=== PATIENT | male | born 1930 | race Caucasian/White ===

== ENCOUNTER 2017-06-14 18:34 | Emergency (ER) | payer MEDICARE ==
[~2017-06-14] VITALS: Ht 188 cm; Wt 85.5 kg
[~2017-06-14 18:34] MED LIST: AMIO200 PO; BILB40CA PO; D400400C PO; FLON0.053 EACH NARE; FOSI10TA4 PO; IBUP-1116 PO; LORA-474 PO; LOVA10TA PO; LUTE1CAP PO; METO25 PO; MINO50TA PO; RANI150 PO; TEST200I12 IM
[2017-06-14 18:41] VITALS: BP 160/72; PULSE 74; RESP 18; TEMP 97.7; O2SAT 97
[2017-06-14 20:04] LABS: BLOOD, URINE LARGE (NEG); GLUCOSE,URINE 250 mg/dL (NEG); KETONE, URINE NEG (NEG); NITRITE,URINE NEG (NEG); PH, URINE 5.5 (5.0-8.5)
--- NOTE | 2017-06-14 20:14 | PD ---
HPI Chief Complaint: Flank/Kidney Pain Time Seen by Provider: 20:05 Travel History International Travel<30 days: No Contact w/Intl Traveler<30days: No Traveled to known affect area: No History of Present Illness HPI 87-year-old male presents to the emergency department by private transportation for complaint of left flank pain radiating to the left lower quadrant consistent with previous renal colic. Patient has history of known left-sided kidney stones and is followed by urologist Dr. Levine. Patient saw his urologist yesterday and had been told that he has a left renal cyst and several small stones in the inferior pole of the left kidney but otherwise right kidney looked fine and did not appear to have any kind of hydroureter or hydronephrosis. Patient was quite pleased with this report until today a few hours prior to arrival to the emergency department developed sudden onset left flank pain that reminded him of renal colic 8/10 in intensity associated with nausea and sweats and 1 episode of vomiting nonbilious [id number] nonbloody emesis. Patient states that he took a one-time dose of sublingual Zofran with resolved his nausea and he's had no further vomiting. Patient did not take any other medication. Patient now states discomfort has decreased to 1 /10 in intensity. Patient presents stating that he is fairly confident this was a kidney stone that he is interested in knowing if he passed a stone if there is still a ureteral stone or if there is another concern. Patient denies any epigastric or periumbilical pain and no midline back pain. Patient denies any ripping or tearing type pain. Patient denies any chest pain palpitations shortness of breath or referred neck jaw shoulder or arm pain. Patient also has not had any anorexia or ongoing nausea or vomiting. 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 Patient is followed by his primary care provider was briefly followed by Dr. Win and now is followed by Dr. Roman is his oncologist was also previously followed by Dr. Herman. Patient has had small bowel instruction in the past. Patient states this is not reminded him of previous small bowel obstruction. Patient has not noticed any gross hematuria but does note that yesterday at the urologist officer was some microscopic hematuria. Patient denies any fever or chills. Patient is concerned that all have recurrent pain and requests a refill of his pain medication and his Zofran as he thinks he is almost out of these medications. Patient is unable to identify exacerbating or alleviating factors. PFSH Past Medical History Narrative Medical Anxiety atrial fibrillation metastatic colon cancer COPD CHF gouty arthritis depression Dupuytren's contracture dyslipidemia hypertension macular degeneration kidney stones renal stent partial colectomy right lower lobectomy rhinoplasty skin cancer excision tonsillectomy last colonoscopy 2009 no tobacco use rare alcohol use nursing notes reviewed Arthritis: Yes Asthma: No Atrial Fibrillation: Yes (HX OF) Autoimmune Disease: No Blood Disorders: No Anxiety: Yes Depression: Yes Heart Rhythm Problems: Yes (ATRIAL FIB,CARDIOVERSION ) Cancer: Yes (COLON CA 1989, LUNG [id number]) Cardiovascular Problems: Yes (1996 AFIB) High Cholesterol: Yes Chemotherapy: No Congestive Heart Failure: Yes COPD: Yes (MILD) Diabetes: No Diminished Hearing: No (BILATERAL,HEARING AIDES AT HOME) Endocrine: No Gastrointestinal Disorders: Yes (COLON CA) GERD: No Glaucoma: Yes Genitourinary: No Hepatitis: No Hiatal Hernia: No Hypertension: Yes Immune Disorder: No Implanted Vascular Access Dvce: Yes Musculoskeletal: Yes Neurologic: No Psychiatric: Yes Reproductive: No Respiratory: Yes (COPD LUNG OPERATION) Myocardial Infarction: No Radiation Therapy: No Thyroid Disease: No Ulcer: No Past Surgical History Abdominal Surgery: Yes (COLON RESECTION) AICD: No Body Medical Devices: LENS IMPLANTS Eye Surgery: Yes (BILAT CATARACT EXT) Genitourinary Surgery: No Oral Surgery: Yes (TONSILS) Pacemaker: No Thoracic Surgery: Yes (LUNG CANCER RIGHT LOBECTOMY) Tonsillectomy: Yes (1934) Other Surgery: Yes (1989-COLON SUGERY(CANCER) 2002--SURGERY FOR LUNG CANCER) Social History Alcohol Use: No Tobacco Use: No (QUIT 30-40YRS AGO) Substance Use: No Allergies-Medications (Allergen,Severity, Reaction): Coded Allergies: Hydrocodone (Verified Adverse Reaction, Intermediate, CAUSES NAUSEA-DOES NOT WANT TO TAKE, 06/14/17) Reported Meds & Prescriptions Reported Meds & Active Scripts Active Reported Zofran Odt (Ondansetron Odt) 4 Mg Tab 4 Mg SL Q6HR PRN [Chanca] Avastin Inj (Bevacizumab) 100 Mg/4 Ml Inj Potassium Citrate ER 15 Meq Tab Testosterone Cypionate Inj (Testosterone Cypionate) 100 Mg/Ml Inj 0.4 Mg IM WEEKLY Lutein 40 Mg Cap 40 Mg PO DAILY Lutein 20 Mg Cap 20 Mg PO DAILY Bilberry 100 Mg Capsule 20 Mg PO DAILY Minocycline (Minocycline HCl) 50 Mg Tab 50 Mg PO DAILY Amiodarone (Amiodarone HCl) 200 Mg Tab 200 Mg PO DAILY Lovastatin 10 Mg Tab 10 Mg PO DAILY Lorazepam 1 Mg Tab 1 Mg PO Q4H PRN Review of Systems Except as stated in HPI: all other systems reviewed are Neg General / Constitutional: No: Fever, Chills HENT: No: Congestion Cardiovascular: Positive: Diaphoresis, No: Chest Pain or Discomfort Respiratory: No: Shortness of Breath Gastrointestinal: Positive: Nausea, Vomiting (1x), Abdominal Pain (referred LLQ ) Genitourinary: Positive: Flank Pain, No: Urgency, Frequency, Dysuria, Hematuria Musculoskeletal: No: Myalgias, Arthralgias Skin: No Rash Neurologic: No: Weakness Psychiatric: No: Anxiety Hematologic/Lymphatic: No: Lymph Node Enlargement Physical Exam Narrative GENERAL: Well-developed well-nourished male in no acute distress no respiratory distress SKIN: Warm and dry. HEAD: Normocephalic. EYES: No scleral icterus. No injection or drainage. NECK: Supple, trachea midline. No JVD or lymphadenopathy. CARDIOVASCULAR: Regular rate and rhythm without murmurs, gallops, or rubs. RESPIRATORY: Breath sounds equal bilaterally. No accessory muscle use. GASTROINTESTINAL: Abdomen soft, non-tender, nondistended. No guarding or rebound. No palpable pulsatile mass. MUSCULOSKELETAL: No cyanosis, or edema. Radial and dorsalis pedis pulses 2+ to palpation bilaterally. BACK: Nontender without obvious deformity. Mild left flank/CVA tenderness. Data Data Last Documented VS Vital Signs Date Time Temp Pulse Resp B/P Pulse Ox O2 Delivery O2 Flow Rate FiO2 06/14/17 20:40 72 18 138/67 06/14/17 18:41 97.7 97 Orders Urinalysis - C+S If Indicated (06/14/17 19:56) Ct Abd/Pel W/O Iv Contrast (06/14/17 ) Complete Blood Count With Diff (06/14/17 20:14) Basic Metabolic Panel (Bmp) (06/14/17 20:14) Tamsulosin (Flomax) (06/14/17 21:15) Labs Laboratory Tests Test 06/14/17 06/14/17 19:55 20:37 Urine Color YELLOW Urine Turbidity SLIGHT Urine pH 5.5 Urine Specific [place] 1.010 Urine Protein TRACE mg/dL Urine Glucose (UA) 250 mg/dL Urine Ketones NEG mg/dL Urine Occult Blood LARGE Urine Nitrite NEG Urine Bilirubin NEG Urine Leukocyte Esterase NEG Urine RBC 100-200 /hpf Urine WBC 0-2 /hpf Urine Squamous Epithelial 0-5 /hpf Cells Urine Bacteria NONE /hpf Microscopic Urinalysis Comment CULT NOT INDICATED White Blood Count 10.3 TH/MM3 Red Blood Count 5.54 MIL/MM3 Hemoglobin 16.5 GM/DL Hematocrit 50.3 % Mean Corpuscular Volume 90.7 FL Mean Corpuscular Hemoglobin 29.7 PG Mean Corpuscular Hemoglobin 32.8 % Concent Red Cell Distribution Width 14.2 % Platelet Count 220 TH/MM3 Mean Platelet Volume 8.3 FL Neutrophils (%) (Auto) 82.5 % Lymphocytes (%) (Auto) 8.2 % Monocytes (%) (Auto) 6.3 % Eosinophils (%) (Auto) 0.1 % Basophils (%) (Auto) 2.9 % Neutrophils # (Auto) 8.6 TH/MM3 Lymphocytes # (Auto) 0.8 TH/MM3 Monocytes # (Auto) 0.6 TH/MM3 Eosinophils # (Auto) 0.0 TH/MM3 Basophils # (Auto) 0.3 TH/MM3 CBC Comment DIFF FINAL Differential Comment Sodium Level 139 MEQ/L Potassium Level 4.4 MEQ/L Chloride Level 103 MEQ/L Carbon Dioxide Level 29.0 MEQ/L Anion Gap 7 MEQ/L Blood Urea Nitrogen 26 MG/DL Creatinine 1.80 MG/DL Estimat Glomerular Filtration 36 ML/MIN Rate Random Glucose 106 MG/DL Calcium Level 8.8 MG/DL [facility] Medical Decision Making Medical Screen Exam Complete: Yes Emergency Medical Condition: Yes Medical Record Reviewed: Yes Interpretation(s) Last Impressions Abdomen/Pelvis CT 06/14/17 0000 Signed Impressions: Service Date/Time: Wednesday, June 14, 2017 20:20 - CONCLUSION: 1. 9 mm calculus at the left distal ureter, just above the left UVJ with mild left sided ureteral dilatation. Numerous additional nonobstructing bilateral renal calculi. Jarett Galvez MD CBC & BMP Diagram 06/14/17 20:37 Vital Signs Date Time Temp Pulse Resp B/P Pulse Ox O2 Delivery O2 Flow Rate FiO2 06/14/17 20:40 72 18 138/67 06/14/17 18:41 97.7 74 18 160/72 97 06/14/17 18:41 97.7 74 18 160/72 97 Differential Diagnosis Flank pain renal colic/obstructive uropathy, pyelonephritis, abdominal aortic aneurysm, dissection, diverticulitis, musculoskeletal pain Narrative Course Specimen collected for urinalysis CT kidney stone protocol abdomen and pelvis imaging ordered IV access obtained specimens collected and sent for resulting; no medications administered as patient denies nausea after Zofran and current discomfort is 1/10 in intensity. Patient remains asymptomatic in the emergency department; labs resulted along with CT abdomen and pelvis kidney stone protocol that identifies a distal ureter stone just above the UVJ 9 mm. Patient with mild hydroureter and minimal hydronephrosis. Patient's discussed case discussed with on-call urologist Dr. Benitez who recommended patient follow-up with his urologist on Saturday Dr. Levine otherwise we'll need to return to the emergency department or possibly be hospitalized over the weekend should he have any recurrent pain. Patient has chronic renal insufficiency which is unchanged from prior lab values. Physician Communication Physician Communication case discussed with Dr Benitez -- follow up outpatient with Dr Levine Diagnosis Primary Impression: Ureterolithiasis Additional Impressions: Chronic kidney disease Medication refill Referrals: Michael Levine MD 3 days Patient Instructions: General Instructions Additional Instructions: Strain urine Increase fluid hydration Take medications as prescribed as needed Follow-up with your urologist Dr. Levine on Saturday Return to the emergency department over the weekend for any pain fever vomiting or any concerns Med/Other Pt SpecificInfo: Prescription(s) given Scripts Oxycodone-Acetaminophen (Percocet)5-325 mg Tab1-2 Tab PO Q6H PRN (PAIN) #12 TAB Ref 0 Prov:Janessa Ortega MD 06/14/17 Tamsulosin (Flomax)0.4 Mg Cap0.4 Mg PO HS #10 CAP Ref 0 Prov:Janessa Ortega MD 06/14/17 Promethazine (Phenergan)25 Mg [id number] Mg PO Q6H PRN (NAUSEA OR VOMITING) #10 TAB Ref 0 Prov:Janessa Ortega MD 06/14/17 Ondansetron Odt (Zofran Odt)4 Mg Tab4 Mg SL Q6HR PRN (Nausea/Vomiting) #6 TAB Ref 0 Prov:Janessa Ortega MD 06/14/17 Disposition: 01 DISCHARGE HOME Condition: Stable Janessa Ortega MD Jun 14, 2017 20:14
[2017-06-14 20:19] LABS: URINE COLOR YELLOW (YELLW/STRAW)
[2017-06-14 20:20] LABS: RBC, URINE 100-200 /hpf (0-3); SQUAMOUS EPITHELIAL CELL URINE 0-5 /hpf (0-5); WBC, URINE 0-2 /hpf (0-5)
[2017-06-14 20:21] LABS: COMMENT (UR) CULT NOT INDICATED; CULTURE IF INDICATED CULT NOT INDICATED
[2017-06-14 20:40] VITALS: BP 138/67; PULSE 72; RESP 18
[2017-06-14 20:41] LABS: AUTOMATED NEUTROPHIL # 8.6 TH/MM3 (1.8-7.7); BASOPHIL # 0.3 TH/MM3 (0-0.2); BASOPHIL % 2.9 % (0.0-2.0); EOSINOPHIL % 0.1 % (0.0-4.0); HEMATOCRIT 50.3 % (39.0-51.0); HEMO FLAGS DIFF FINAL; LYMPH % 8.2 % (9.0-44.0); LYMPHOCYTE # 0.8 TH/MM3 (1.0-4.8); MEAN CELL VOLUME 90.7 FL (80.0-100.0); MEAN CORPUSCULAR HEMOGLOBIN 29.7 PG (27.0-34.0); MEAN CORPUSCULAR HGB CONC 32.8 % (32.0-36.0); MONO % 6.3 % (0.0-8.0); NEUT % 82.5 % (16.0-70.0); PLATELET COUNT 220 TH/MM3 (150-450); RED BLOOD COUNT 5.54 MIL/MM3 (4.50-5.90); RED CELL DISTRIBUTION WIDTH 14.2 % (11.6-17.2); WHITE BLOOD COUNT 10.3 TH/MM3 (4.0-11.0)
[2017-06-14 20:50] LABS: POTASSIUM 4.4 MEQ/L (3.5-5.1)
[2017-06-14] MEDS ORDERED: LUTE20CA PO (20:54)
[2017-06-14] MEDS ORDERED: [UNRECOGNIZED DRUG - OTHER] (20:54)
[2017-06-14] MEDS ORDERED: MINO1TAB PO (20:54)
[2017-06-14] MEDS ORDERED: TEST1INJ3 IM (20:54)
[2017-06-14] MEDS ORDERED: BEVA100P (20:54)
[2017-06-14] MEDS ORDERED: BILB100C2 PO (20:54)
[2017-06-14] MEDS ORDERED: POTA4.25 (20:54)
[2017-06-14] MEDS ORDERED: LORA1TAB12 PO (20:54)
[2017-06-14] MEDS ORDERED: LOVA10TA PO (20:54)
[2017-06-14] MEDS ORDERED: LUTE40CA2 PO (20:54)
[2017-06-14] MEDS ORDERED: AMIO200T PO (20:54)
--- NOTE | 2017-06-14 20:58 | RADRPT ---
EXAM DATE/TIME: 06/14/2017 20:20 [facility] COMPARISON: CT ABDOMEN & PELVIS W/O CONTRAST, October 20, 2014, 11:45. INDICATIONS : Left flank pain with nausea for one day. Prior history of renal calculi. ORAL CONTRAST: No oral contrast ingested. RADIATION DOSE: 11.58 CTDIvol (mGy) MEDICAL HISTORY : Renal calculi. Metastatic, colon. Carcinoma, lung.COPD, AFIB SURGICAL HISTORY : Colon resection. Lobectomy. ENCOUNTER: Initial ACUITY: 1 day PAIN SCALE: 4/10 LOCATION: Left flank TECHNIQUE: Volumetric scanning of the abdomen and pelvis was performed. Using automated exposure control and ad justment of the mA and/or kV according to patient size, radiation dose was kept as low as reasonably achievable to obtain optimal diagnostic quality images. DICOM format image data is available electro nically for review and comparison. FINDINGS: There is an approximately 9 mm calculus in the distal left ureter just proximal to the ureterovesical junction. There are numerous additional nonobstructing calculi in the left kidney, mostly in the low er pole ranging in size from about 1-10 mm in short axis diameter. On the right side they are also nu merous calculi ranging in size from about 1-4 mm in short axis diameter. No evidence for right-sided obstructive uropathy. Lung bases are clear. No acute findings in the liver, spleen, adrenals or pancreas. Stable adrenal en largement. Mild constipation. No free air or free fluid. Prostate enlarged. No acute bony abnormality . CONCLUSION: 1. 9 mm calculus at the left distal ureter, just above the left UVJ with mild left sided ureteral dil atation. Numerous additional nonobstructing bilateral renal calculi. Jarett Galvez MD on June 14, 2017 at 20:52 Board Certified Radiologist. This report was verified electronically.
[2017-06-14] MEDS ORDERED: TAMSULOSIN HCL 0.4 MG CAP PO ONE (21:15)
[2017-06-14] MEDS ORDERED: ZOFR4TAB3 SL ×2 (21:23→21:57)
[2017-06-14] MEDS ORDERED: PERC5TAB12 PO (21:57)
[2017-06-14] MEDS ORDERED: TAMS5CAP PO (21:57)
[2017-06-14] MEDS ORDERED: PROM25TA10 PO (21:57)
== END 2017-06-14 22:18 | disposition home or self-care (01) ==
LOC: PHED 18:34
DX: N13.2 Hydronephrosis with renal and ureteral calculous obstruction (principal); I13.0 Hypertensive heart and chronic kidney disease with heart failure and stage 1 through stage 4 chronic kidney disease, or unspecified chronic kidney disease; I50.9 Heart failure, unspecified; N18.9 Chronic kidney disease, unspecified; Z76.0 Encounter for issue of repeat prescription; Z85.038 Personal history of other malignant neoplasm of large intestine; Z87.891 Personal history of nicotine dependence
CPT/HCPCS: 74176; 80048; 81001; 85025